=== PATIENT | female | born 2000 | race African-American/Black ===

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

== ENCOUNTER 2021-01-30 04:38 | Emergency (ER) | payer BC ==
[~2021-01-30] VITALS: Ht 157.5 cm; Wt 66.4 kg
[2021-01-30 05:00] VITALS: BP 122/70
--- NOTE | 2021-01-30 05:00 | PHYS DOC ---
Past Medical History Past Medical History: No Pertinent History Past Surgical History: Other Additional Past Surgical Histo: WRIST SX Smoking Status: Never Smoker Alcohol Use: None Drug Use: None General Adult EDM: Chief Complaint: VAGINAL PROBLEM HPI: HPI: Patient is a 20 year old female who presents with a painful lump on her right labia. She reports that she has had this previously, a few years ago. She rep orts that she believes that she was told she has a Bartholin cyst. She had it drained in the emergency department, but she never followed up with [facility] or primary care physician. She reports that she did not have any symptoms until a few days ago. She denies abdominal pain, pelvic pain, vaginal discharge. Denies fevers or chills. Denies urinary symptoms. LMP current. She denies any pelvic or labial or vaginal trauma. Review of Systems: Review of Systems: Constitutional: Denies fever or chills. [] Respiratory: Denies cough or shortness of breath. [] Cardiovascular: Denies chest pain or edema. [] GI: Denies abdominal pain, nausea, vomiting, bloody stools or diarrhea. [] : Denies urinary symptoms. Reports right labial pain and swelling. Musculoskeletal: Denies back pain or joint pain. [] Integument: Denies rash. Right labial swelling, redness and pain. Neurologic: Denies headache, focal weakness or sensory changes. [] Psychiatric: Denies depression or anxiety. [] Heart Score: C/O Chest Pain: No Risk Factors: Risk Factors: DM, Current or recent (<one month) smoker, HTN, HLP, family history of CAD, obesity. Risk Scores: Score 0 - 3: 2.5% MACE over next 6 weeks - Discharge Home Score 4 - 6: 20.3% MACE over next 6 weeks - Admit for Clinical Observation Score 7 - 10: 72.7% MACE over next 6 weeks - Early Invasive Strategies Allergies: Allergies: Allergies Coded Allergies Type Severity Reaction Last Updated Verified No Known Drug Allergies 08/01/16 No Physical Exam: PE: Constitutional: Well developed, well nourished, no acute distress, non-toxic appearance. [] HENT: Normocephalic, atraumatic Eyes: Sclera clear. Cardiovascular: Well-perfused appearing. No edema. Lungs & Thorax: Respirations are nonlabored. Skin: Soft tissue swelling, fluctuance, tenderness of the right mid labia minora. : Fluctuant, round, rubbery, erythematous lesion of the mid right labia minora, consistent with Bartholin's abscess. Exquisite soft tissue tenderness is noted. No dusky discoloration. No urethral or other vaginal abnormalities noted. Extremities: No deformity. No edema. Neurologic: Alert and oriented X 3, normal motor function, gait steady, speech clear and fluent. Psychologic: She is very pleasant cooperative. [] EKG: EKG: [] Radiology/Procedures: Radiology/Procedures: [] Course & Med Decision Making: Course & Med Decision Making I discussed the findings, differential diagnosis and plan of care with the patient. Findings are most objective a Bartholin's abscess. She tolerated incision and drainage well. I instructed her that she must follow-up with [facility] for formal and definitive treatment, so as to reduce the chance of recurrence. No current indication for further invasive exams, imaging, labs. She may return in 2 days to the ER for wound check and packing removal. She is comfortable with the plan of care. Return precautions are given. Dragon Disclaimer: Dragon Disclaimer: This electronic medical record was generated, in whole or in part, using a voice recognition dictation system. Incision and Drainage Indication: Bartholin's abscess Procedure: The patient was positioned appropriately. Local anesthesia was achieved by utilizing 1% lidocaine. The area was cleaned with Betadine. An incision was then made over the apex of the lesion and a moderate to large amount of purulent materialwas expressed. The drainage cavity was irrigated and packed with sterile gauze. The patient tolerated the procedure well. Complications: none. Departure Departure Impression: Primary Impression: Bartholin's gland abscess Disposition: 01 HOME / SELF CARE / HOMELESS Condition: STABLE Referrals: NO PCP (PCP) TELLO RENEE Jr, MD Patient Instructions: Bartholin's Cyst or Abscess Additional Instructions: Use the medication as directed. Return to the ER immediately for more severe pain, increased swelling, fever 100.4 or higher, severe abdominal or pelvic pain, or any other concerns. Please follow-up with a welding lead burner for more definitive and permanent treatment of this cyst. Scripts Hydrocodone Bit/Acetaminophen (HYDROCODONE-APAP 5-325 ) 1 Tab Tablet 1 TAB PO PRN Q6HRS PRN for PAIN, #20 TAB 0 Refills Prov: ANNE DOOLEY DO 01/30/21 Clindamycin Hcl (CLINDAMYCIN HCL) 300 Mg Capsule 1 CAP PO TID for 7 Days, #21 CAP Prov: ANNE DOOLEY DO 01/30/21 ANNE DOOLEY DO Jan 30, 2021 04:59
[2021-01-30] MEDS ORDERED: LIDOCAINE 1% Multi-Dose 20 ML VIAL. ONE (05:17)
[2021-01-30] MEDS ORDERED: LIDOCAINE 1% Multi-Dose 20 ML VIAL. INJ ONE (05:30)
[2021-01-30] MEDS ORDERED: HYDR-2761 PO (05:37)
[2021-01-30] MEDS ORDERED: CLIN-94 PO (05:37)
== END 2021-01-30 05:45 | disposition home or self-care (01) ==
LOC: ER 04:38
DX: N75.1 Abscess of Bartholin's gland (principal)
CPT/HCPCS: 56420; 99284; J3490

== ENCOUNTER 2021-04-26 14:04 | Emergency (ER) | payer SELFPAY ==
[~2021-04-26] VITALS: Ht 157.5 cm; Wt 61.3 kg
[~2021-04-26 14:04] MED LIST changes: +CLIN-94 PO; +HYDR-2761 PO
[2021-04-26] MEDS ORDERED: LIDOCAINE 1% Multi-Dose 20 ML VIAL. ONE (14:53)
[2021-04-26] MEDS ORDERED: LIDOCAINE 1% Multi-Dose 20 ML VIAL. INJ ONE (15:00)
--- NOTE | 2021-04-26 15:43 | PHYS DOC ---
Past Medical History Past Medical History: No Pertinent History Past Surgical History: Other Additional Past Surgical Histo: WRIST SX Smoking Status: Never Smoker Alcohol Use: None Drug Use: None General Adult EDM: Chief Complaint: VAGINAL PROBLEM HPI: HPI: Patient is a 21 year old female who presents with painful, swollen right labia. Patient reports she has had Bartholin gland cysts in the past. The first time, she states was 3-4 years ago, most recently she had one and early January 2021. The first time she had a Word catheter placed, but it fell out within 2 days. The last time she was seen, a Word catheter was not placed. Patient reports her symptoms started 3 days ago and have progressively worsened since. She states it is painful to bend over, sit, walk. She denies fever, chills, weakness, increased vaginal discharge, malodor, bleeding or drainage from the labia itself. Review of Systems: Review of Systems: Constitutional: See HPI Eyes: Denies change in visual acuity, visual field deficits or discharge HENT: Denies ear pain, nasal congestion or sore throat Respiratory: Denies cough or shortness of breath Cardiovascular: Denies chest pain, palpitations or edema GI: Denies abdominal pain, nausea, vomiting, bloody stools or diarrhea : See HPI Musculoskeletal: Denies back pain or joint pain Integument: Denies rash or other skin lesion Neurologic: Denies headache, focal weakness or sensory changes Heart Score: C/O Chest Pain: No Current Medications: Current Medications Medications (Trade) Dose Ordered Sig/[facility] Start Time Stop Time Status Last Admin Dose Admin Lidocaine HCl (Lidocaine 1% 20ml Vial) 20 ml 1X ONCE 04/26/21 15:00 04/26/21 15:02 DC 04/26/21 15:12 20 ML Allergies: Allergies: Allergies Coded Allergies Type Severity Reaction Last Updated Verified No Known Drug Allergies 08/01/16 No Physical Exam: PE: Constitutional: Well developed, well nourished, no acute distress, non-toxic appearance. HENT: Normocephalic, atraumatic, bilateral external ears normal, nose normal. Eyes: EOMI, conjunctiva normal, no discharge. Neck: Normal range of motion, no stridor. Skin: See below for exam. Warm, dry, no erythema, no rash. Genital: Mons pubis with appropriate and symmetrical hair growth, thin and nonodorous white discharge noted at introitus and on labia minora, right labia swollen with rubbery and fluctuant mass, surrounding exquisite soft tissue tenderness without drainage or erythema. Extremities: No tenderness, no cyanosis, no clubbing, ROM intact, no edema. Neurologic: Alert and oriented x4, no focal deficits noted. Current Patient Data: Labs: Laboratory Tests Test 04/26/21 14:34 POC Urine HCG, Qualitative Hcg negative (Negative) Vital Signs: Vital Signs Date Time Temp Pulse Resp B/P (MAP) Pulse Ox O2 Delivery O2 Flow Rate FiO2 04/26/21 14:18 98.5 78 20 133/74 (93) 98 Room Air 98.5 Course & Med Decision Making: Course & Med Decision Making Pertinent Labs and Imaging studies reviewed. (See chart for details) Patient is an otherwise healthy 21-year-old female who presents with painful, swollen right labia. Patient has known history of Bartholin gland cyst abscess. Word catheter will be placed and patient will be discharged home with oral antibiotics. Patient informed that the catheter should stay in place for at least 2 weeks, if not longer for appropriate drainage and treatment. Patient states this is different from the instruction she is received in the past, but I assured her these are treatment guidelines. She will be provided with contact information for gynecology follow-up. Patient understands and is agreeable to discharge plan Shawna Disclaimer: Shawna Disclaimer: This electronic medical record was generated, in whole or in part, using a voice recognition dictation system. Incision and Drainage Indication: Bartholin gland cyst abscess Procedure: The patient was positioned appropriately. Local anesthesia was 1% lidocaine plain. An incision was then made over the apex of the lesion and moderate amount of purulent material was expressed. A Word catheter was inserted to the drainage cavity and filled with 1.5 cc water. Additional information: The patient tolerated the procedure well. Complications: none. Departure Departure Impression: Primary Impression: Bartholin's gland abscess Disposition: 01 HOME / SELF CARE / HOMELESS Condition: IMPROVED Referrals: NO PCP (PCP) Patient Instructions: Bartholin's Cyst or Abscess Additional Instructions: You were treated today for Bartholin gland abscess. The abscess was drained and a Word catheter (balloon catheter) was placed. This catheter should remain in place for 4-6wk to avoid recurrence. Take the antibiotics as prescribed. For pain, you can take Advil (up to 800 mg) or Aleve (up to 500 mg) every 8 hours. Tramadol was prescribed if this is not sufficient. You should only take the tramadol if the [id number] pain medication is not enough to relieve your pain. Please follow-up with gynecology after about 2-3 weeks. This means that you should call tomorrow to schedule an appointment, as sometimes appointments are booked. Please return to the emergency department if you have worsening symptoms, develop new symptoms or have any other concerns. Scripts Tramadol Hcl (TRAMADOL HCL) 50 Mg Tablet 50 MG PO DAILY PRN for PAIN for 5 Days, #5 TAB 0 Refills Prov: ALBAN PURVIS 04/26/21 Clindamycin Hcl (CLINDAMYCIN HCL) 300 Mg Capsule 300 MG PO QID for 7 Days, #28 CAP Prov: ALBAN PURVIS 04/26/21 Cefixime (Cefixime) 400 Mg Capsule 400 MG PO DAILY for 7 Days, #7 CAP Prov: ALBAN PURVIS 04/26/21 ALBAN PURVIS Apr 26, 2021 15:43
[2021-04-26] MEDS ORDERED: TRAM50TA PO (16:21)
[2021-04-26] MEDS ORDERED: CLIN-94 PO (16:21)
[2021-04-26] MEDS ORDERED: CEFI400C4 PO (16:21)
[2021-04-26] MEDS ORDERED: traMADol 50 MG TABLET ONE (16:23)
[2021-04-26 16:30] VITALS: BP 111/64
[2021-04-26] MEDS ORDERED: traMADol 50 MG TABLET PO ONE (16:30)
== END 2021-04-26 16:35 | disposition home or self-care (01) ==
LOC: ER 14:04
DX: N75.1 Abscess of Bartholin's gland (principal)
CPT/HCPCS: 56420; 81025; 99284; J3490

== ENCOUNTER 2021-08-01 18:52 | Emergency (ER) | payer SELFPAY ==
[~2021-08-01] VITALS: Ht 157.5 cm; Wt 69.4 kg
[~2021-08-01 18:52] MED LIST changes: +CEFI400C4 PO; +TRAM50TA PO
--- NOTE | 2021-08-01 19:53 | PHYS DOC ---
Past Medical History Past Medical History: Other Additional Past Medical Histor: bartholin cyst abscess Past Surgical History: No Surgical History, Other Additional Past Surgical Histo: WRIST SX Smoking Status: Never Smoker Alcohol Use: None Drug Use: None General Adult EDM: Chief Complaint: SEXUALLY TRANSMITTED DISEASE HPI: HPI: Patient is a 21-year-old female who presents today with painful sores on her labia and rectum area. Patient states that she started noticing them on Tuesday, she said that they are very painful when she urinates, and they are slightly bleeding. Patient states that she waxes on a regular basis and last waxed approximately 3 weeks ago, she said the lesions were not there when she walks then she said they have come up since then. Patient states that she has had unprotected sex but she does not report any concerns for any sores. Patient states she has never been diagnosed with any STIs in the past. Review of Systems: Review of Systems: Constitutional: Denies fever or chills. [] Eyes: Denies change in visual acuity. [] HENT: Denies nasal congestion or sore throat. [] Respiratory: Denies cough or shortness of breath. [] Cardiovascular: Denies chest pain or edema. [] GI: Denies abdominal pain, nausea, vomiting, bloody stools or diarrhea. [] /TAMALE MAKER: Painful sores on her genital area Musculoskeletal: Denies back pain or joint pain. [] Integument: Denies rash. [] Neurologic: Denies headache, focal weakness or sensory changes. [] Endocrine: Denies polyuria or polydipsia. [] Lymphatic: Denies swollen glands. [] Psychiatric: Denies depression or anxiety. [] Heart Score: C/O Chest Pain: No Risk Factors: Risk Factors: DM, Current or recent (<one month) smoker, HTN, HLP, family history of CAD, obesity. Risk Scores: Score 0 - 3: 2.5% MACE over next 6 weeks - Discharge Home Score 4 - 6: 20.3% MACE over next 6 weeks - Admit for Clinical Observation Score 7 - 10: 72.7% MACE over next 6 weeks - Early Invasive Strategies Current Medications: Current Medications Medications (Trade) Dose Ordered Sig/Lady Start Time Stop Time Status Last Admin Dose Admin Acyclovir (Zovirax) 400 mg 1X ONCE 08/01/21 19:45 08/01/21 19:46 UNV Ceftriaxone Sodium (Rocephin) 1 gm 1X ONCE 08/01/21 19:45 08/01/21 19:46 UNV Doxycycline Hyclate (Vibra-Tab) 100 mg 1X ONCE 08/01/21 19:45 08/01/21 19:46 UNV Allergies: Allergies: Allergies Coded Allergies Type Severity Reaction Last Updated Verified No Known Drug Allergies 08/01/16 No Physical Exam: PE: Constitutional: Well developed, well nourished, no acute distress, non-toxic appearance. [] HENT: Normocephalic, atraumatic, bilateral external ears normal, oropharynx moist, no oral exudates, nose normal. [] Eyes: PERRLA, EOMI, conjunctiva normal, no discharge. [] Neck: Normal range of motion, no tenderness, supple, no stridor. [] Cardiovascular:Heart rate regular rhythm, no murmur [] Lungs & Thorax: Bilateral breath sounds clear to auscultation [] Abdomen: Bowel sounds normal, soft, no tenderness, no masses, no pulsatile masses. [] Skin: Warm, dry, no erythema, no rash. [] Back: No tenderness, no CVA tenderness. [] Extremities: No tenderness, no cyanosis, no clubbing, ROM intact, no edema. [] Neurologic: Alert and oriented X 3, normal motor function, normal sensory function, no focal deficits noted. [] Psychologic: Affect normal, judgement normal, mood normal. [] TAMALE MAKER pelvic exam: mulitple painful lesions noted on labial majoria and anus area, sore are open and scant blood noted, patient is on her menstrual cycle and blood noted from vagina, culture was done of lesions, rotary shear cutter was at the bedside during this exam Current Patient Data: Labs: Laboratory Tests Test 08/01/21 20:29 Urine Collection Type Unknown Urine Color (Auto) Light orange Urine Turbidity Hazy Urine pH (Auto) 6.5 Urine Specific [place] 1.025 Urine Protein (Auto) 50 mg/dL Urine Glucose (Auto)(UA) Negative mg/dL Urine Ketones (Auto) Negative mg/dL Urine Blood (Auto) Large Urine Nitrite Negative Urine Bilirubin (Auto) Negative Urine Urobilinogen (Auto) Normal mg/dL Urine Leukocyte Esterase (Auto) Large Urine RBC 11-20 /HPF Urine WBC 11-20 /HPF Urine Squamous Epithelial Cells Mod /LPF Urine Bacteria Few /HPF Urine Trichomonas Present Current Medications Medications (Trade) Dose Ordered Sig/Lady Route PRN Reason Start Time Stop Time Status Last Admin Dose Admin Ceftriaxone Sodium (Rocephin) 1 gm 1X ONCE IVP 08/01/21 20:00 08/01/21 20:01 Cancel Acyclovir (Zovirax) 400 mg 1X ONCE PO 08/01/21 20:00 08/01/21 20:01 DC Doxycycline Hyclate (Vibra-Tab) 100 mg 1X ONCE PO 08/01/21 20:00 08/01/21 20:01 DC Ceftriaxone Sodium (Rocephin Im) 500 mg 1X ONCE IM 08/01/21 20:00 08/01/21 20:02 DC 08/01/21 20:10 Vital Signs: Vital Signs Date Time Temp Pulse Resp B/P (MAP) Pulse Ox O2 Delivery O2 Flow Rate FiO2 08/01/21 18:55 98.4 96 18 163/77 (105) 96 Room Air 98.4 EKG: EKG: [] Radiology/Procedures: Radiology/Procedures: [] Course & Med Decision Making: Course & Med Decision Making Pertinent Labs and Imaging studies reviewed. (See chart for details) 2049 I spoke to patient at length regarding the precautions with the herpes simplex also it was noted in her urine that she was positive for trichomonas and we are also treating her for GC and chlamydia. I did confer with Dr. Olsen he recommended treating the patient with acyclovir, doxycycline, and Flagyl for the Trichomonas. Shawna Disclaimer: Shawna Disclaimer: This electronic medical record was generated, in whole or in part, using a voice recognition dictation system. Departure Departure Impression: Primary Impression: Genital herpes Qualified Codes: A60.04 - Herpesviral vulvovaginitis Additional Impressions: Sexually transmitted disease exposure Trichomoniasis Disposition: HOME / SELF CARE / HOMELESS Condition: STABLE Referrals: NO PCP (PCP) SELENA FONTAINE MD Patient Instructions: Herpes Labialis, Sexually Transmitted Disease, Trichomoniasis Additional Instructions: Acyclovir 400 mg every 8 hours for the next 10 days Doxycycline 100 mg 1 tablet twice daily for 7 days Hydrocodone 1 tablet every 6 hours as needed for severe pain Flagyl 500 mg 1 tablet twice daily for 7 full days Zofran 4 mg take 1 tablet every 6-8 hours as needed for nausea [id number] Motrin or Tylenol as needed for mild to moderate pain Follow-up with your primary care physician one of the listed clinics below or Dr. Fontaine who is the KNIFEMAN on-call for further evaluation and management of your issues. [facility] [address] [place] [address] [facility] [address] [address] [facility] [address] [place] [address] [facility] [address] [place] [address] [facility] [address] [place] [address] [facility] [address] [place] [address] [facility] [address] [place] [address] [employer] [facility] [address] [place] [address] [facility] [address] [place] [address] [facility] [address] [place] [address] Scripts Ondansetron (ONDANSETRON ODT) 4 Mg Tab.rapdis 1 TAB PO PRN Q6-8HRS, #16 TAB Prov: GUSTAVO DIAZ APRN 08/01/21 Hydrocodone Bit/Acetaminophen (HYDROCODONE-APAP 5-325 ) 1 Tab Tablet 1 TAB PO PRN Q6HRS PRN for PAIN, #10 TAB 0 Refills Prov: GUSTAVO DIAZ APRN 08/01/21 Metronidazole (METRONIDAZOLE) 500 Mg Tablet 1 TAB PO BID for 7 Days, #14 TAB 0 Refills Prov: GUSTAVO DIAZ APRN 08/01/21 Doxycycline Hyclate (DOXYCYCLINE HYCLATE) 100 Mg Capsule 1 CAP PO BID, #14 CAP Prov: GUSTAVO DIAZ APRN 08/01/21 Acyclovir (ACYCLOVIR) 400 Mg Tablet 1 TAB PO TID, #30 TAB Prov: GUSTAVO DIAZ MILL ATTENDANT 08/01/21 GUSTAVO DIAZ MILL ATTENDANT Aug 01, 2021 19:53
[2021-08-01] MEDS ORDERED: cefTRIAXone IM 500 MG VIAL. IM ONE (20:00)
[2021-08-01] MEDS ORDERED: DOXYCYCLINE HYCLATE 100 MG TABLET PO ONE (20:00)
[2021-08-01] MEDS ORDERED: cefTRIAXone IV Push 1 GM VIAL. IVP ONE (20:00)
[2021-08-01] MEDS ORDERED: ACYCLOVIR 200 MG CAPSULE. PO ONE (20:00)
[2021-08-01 20:47] LABS: BACTERIA,URINE FEW /HPF (0-FEW)
[2021-08-01 20:50] LABS: TRICHOMONAS,URINE PRESENT
[2021-08-01] MEDS ORDERED: ACYC-12 PO (21:06)
[2021-08-01] MEDS ORDERED: HYDR-2761 PO (21:06)
[2021-08-01] MEDS ORDERED: METR-34 PO (21:06)
[2021-08-01] MEDS ORDERED: DOXY100C3 PO (21:06)
[2021-08-01] MEDS ORDERED: ONDA4TAB12 PO (21:06)
[2021-08-01 21:43] VITALS: BP 109/70
[2021-08-06 10:26] LABS: HERPES SIMPLEX TYPE 1 Positive (Negative); HERPES SIMPLEX TYPE 2 Negative (Negative)
== END 2021-08-01 21:54 | disposition home or self-care (01) ==
LOC: ER 18:52
DX: A60.04 Herpesviral vulvovaginitis (principal); A59.9 Trichomoniasis, unspecified; Z20.2 Contact with and (suspected) exposure to infections with a predominantly sexual mode of transmission
CPT/HCPCS: 36415; 81001; 87086; 87147; 87491; 87529; 87591; 96372; 99284; J0696; 99283